=== PATIENT | male | born 1950 | race Caucasian/White ===

== ENCOUNTER 2025-01-22 20:36 | Inpatient (IN) | payer OTHER ==
[~2025-01-22] VITALS: Ht 177.8 cm; Wt 75.2 kg
[2025-01-22 20:57] LABS: Hematocrit 27.6 % (37.0-53.0); Hemoglobin 10.1 g/dL (13.5-17.5); Mean Corpuscular HGB Conc 36.6 g/dL (31.5-36.5); Mean Corpuscular Volume 99 fL (80-100); NRBC ABSOLUTE 0.00 K/mm3 (0.00-0.02); NRBC Auto 0.0 /100 WBC (0.0-0.2); Platelet Count 56 K/mm3 (150-400); RDW Coefficient Variation 13.0 % (11.7-14.2); RDW Standard Deviation 46.9 fL (35.1-46.3)
[2025-01-22] MEDS ORDERED: OXYC5 PO (20:59)
[2025-01-22] MEDS ORDERED: BRUKINSA80 MG PO (20:59)
[2025-01-22 21:19] LABS: Alanine Aminotransfer (ALT/SGP 49.0 U/L (12-78); Albumin, Blood 1.8 g/dL (3.4-5.0); Albumin/Globulin Ratio 0.3 (0.8-1.8); Anion Gap 10.0 mmol/L (3-11); Aspartate Aminotrans (AST/SGOT 54.0 U/L (12-37); Bilirubin, Total 2.4 mg/dL (0.1-1.0); Blood Urea Nitrogen 69.0 mg/dL (8-24); CO2, Blood 23.0 mmol/L (21-32); Calcium, Blood 8.1 mg/dL (8.5-10.1); Chloride, Blood 102.0 mmol/L (98-108); Creatinine, Blood 1.26 mg/dL (0.60-1.20); Globulin, Blood 5.2 g/dL (2.2-4.0); Glucose, Blood 119.0 mg/dL (70-99); Potassium, Blood 2.9 mmol/L (3.5-5.5); Sodium, Blood 132.0 mmol/L (136-145); Total Protein, Blood 7.0 g/dL (6.4-8.2)
[2025-01-22 21:22] LABS: BAND PERCENT MAN 4 % (0-8); BASOPHILS ABSOLUTE MAN 0.00 K/mm3 (0.00-0.23); BASOPHILS PERCENT MAN 0 % (0-2); EOSINOPHILS ABSOLUTE MAN 0.00 K/mm3 (0.00-0.68); EOSINOPHILS PERCENT MAN 0 % (0-6); LYMPHOCYTES % ATYPICAL MANUAL 1 % (0-0); LYMPHOCYTES ABSOLUTE MAN 0.33 K/mm3 (0.84-5.20); LYMPHOCYTES PERCENT MAN 13 % (21-46); MONOCYTES ABSOLUTE MAN 0.09 K/mm3 (0.16-1.47); MONOCYTES PERCENT MAN 4 % (4-13); NEUTROPHILS ABSOLUTE MAN 1.98 K/mm3 (1.96-9.15); SEG NEUTROPHILS PERCENT MAN 78 % (41-73)
[2025-01-22] MEDS ORDERED: NS 1,000 ML IV SCH ×2 (21:25→22:10)
[2025-01-22 21:30] LABS: Source, Urine Foley catheter
[2025-01-22] MEDS ORDERED: Potassium Chl 20MEQ/Water100ML 200 ML IV ONE (21:40)
[2025-01-22] MEDS ORDERED: Potassium Chl 20MEQ/Water100ML 200 ML IV SCH (21:40)
[2025-01-22 21:42] LABS: Bilirubin, Urine Neg (Neg); Color, Urine Amber (P-Yellow); Glucose Qualitative, Urine Neg (Neg); Ketones, Urine Neg (Neg); Leukocyte Esterase, Urine 1+ (Neg); Protein, Urine 2+ (Neg); Specific Gravity, Urine 1.015 (1.003-1.022); Urobilinogen, Urine 1+ (Normal)
[2025-01-22] MEDS ORDERED: Potassium Chl 20MEQ/Water100ML 100 ML IV SCH (21:45)
[2025-01-22] MEDS ORDERED: Ketorolac Tromethamine 30mg Vial IV ONE (21:55)
[2025-01-22] MEDS ORDERED: Piperacillin/Tazobactam Sod 3.375 GM in NS 100 ML IV ONE (21:55)
[2025-01-22 21:56] LABS: Red Blood Cells, Urine 0-2 /hpf (0-2); White Blood Cells, Urine 0-2 /hpf (0-5)
[2025-01-23] VITALS (60 sets, daily range): BP systolic 69–108; BP diastolic 44–80
[2025-01-23] MEDS ORDERED: NS 1,000 ML IV SCH (01:23)
[2025-01-23] MEDS ORDERED: Piperacillin/Tazobactam Sod 3.375 GM in NS 100 ML IV SCH (04:00)
[2025-01-23 04:08] LABS: Hematocrit 28.1 % (37.0-53.0); Hemoglobin 10.0 g/dL (13.5-17.5); Mean Corpuscular HGB Conc 35.6 g/dL (31.5-36.5); Mean Corpuscular Volume 100 fL (80-100); NRBC ABSOLUTE 0.00 K/mm3 (0.00-0.02); NRBC Auto 0.0 /100 WBC (0.0-0.2); Platelet Count 66 K/mm3 (150-400); RDW Coefficient Variation 13.3 % (11.7-14.2); RDW Standard Deviation 49.3 fL (35.1-46.3)
[2025-01-23 04:25] LABS: Alanine Aminotransfer (ALT/SGP 41.0 U/L (12-78); Albumin, Blood 1.6 g/dL (3.4-5.0); Albumin/Globulin Ratio 0.3 (0.8-1.8); Anion Gap 13.0 mmol/L (3-11); Aspartate Aminotrans (AST/SGOT 43.0 U/L (12-37); Bilirubin, Total 2.4 mg/dL (0.1-1.0); Blood Urea Nitrogen 65.0 mg/dL (8-24); CO2, Blood 20.0 mmol/L (21-32); Calcium, Blood 7.4 mg/dL (8.5-10.1); Chloride, Blood 105.0 mmol/L (98-108); Creatinine, Blood 1.32 mg/dL (0.60-1.20); Globulin, Blood 5.0 g/dL (2.2-4.0); Glucose, Blood 83.0 mg/dL (70-99); Magnesium, Blood 1.5 mg/dL (1.6-2.4); Potassium, Blood 3.0 mmol/L (3.5-5.5); Sodium, Blood 135.0 mmol/L (136-145); Total Protein, Blood 6.6 g/dL (6.4-8.2)
[2025-01-23 04:35] LABS: BAND PERCENT MAN 25 % (0-8); BASOPHILS ABSOLUTE MAN 0.00 K/mm3 (0.00-0.23); BASOPHILS PERCENT MAN 0 % (0-2); EOSINOPHILS ABSOLUTE MAN 0.00 K/mm3 (0.00-0.68); EOSINOPHILS PERCENT MAN 0 % (0-6); LYMPHOCYTES ABSOLUTE MAN 0.48 K/mm3 (0.84-5.20); LYMPHOCYTES PERCENT MAN 10 % (21-46); MONOCYTES ABSOLUTE MAN 0.14 K/mm3 (0.16-1.47); MONOCYTES PERCENT MAN 3 % (4-13); MYELOCYTE ABSOLUTE MAN 0.09 K/mm3 (0.00-0.00); MYELOCYTE PERCENT MAN 2 % (0-0); NEUTROPHILS ABSOLUTE MAN 4.12 K/mm3 (1.96-9.15); SEG NEUTROPHILS PERCENT MAN 60 % (41-73)
[2025-01-23] MEDS ORDERED: Mag Sulfate 1 GM/D5% 100ML 100 ML IV ONE (05:15)
--- NOTE | 2025-01-23 06:40 | NUR ---
SHIFT SUMMARY PT HAS TOLERATED SHIFT SINCE ADMIT TO ICU WITH NO SIGNIFICANT EVENTS OR CHANGES. PT CONTINUES TO BE ON LEVOPHED FOR BLOOD PRESSURE SUPPORT. PT WAS STARTED ON NASAL CANULA AT 2LPM WHILE SLEEPING DUE TO DECREASED SPO2 AT THE TIME. WHILE AWAKE, PT IS ON RA SATS >97%. PT COMPLAINS OF CHRONIC PAIN FROM ARTHRITIS IN HANDS, MEDICATED PER AUG. PT ABLE TO SWALLOW WITHOUT COMPLICATION. PARRA IN PLACE DRAINING TO GRAVITY. NO BM OVERNIGHT. CALL LIGHT WITHIN REACH. WILL CONTINUE TO MONITOR UNTIL REPORT PASSED TO DAY SHIFT TEAM.
[2025-01-23 08:47] LABS: Ferritin, Serum 1865.0 ng/mL (26-388); Total Iron Binding Capacity 174.0 ug/dL (250-450)
[2025-01-23] MEDS ORDERED: Enoxaparin 40 MG/0.4 ML SYR SC SCH (09:00)
[2025-01-23] MEDS ORDERED: Lactobacil 2-S.Thermo-Bifido 1 1 Cap PO SCH (09:00)
[2025-01-23 11:52] LABS: Prothrombin Time Results 14.6 Sec (9.7-11.5)
[2025-01-24] VITALS (93 sets, daily range): BP systolic 68–125; BP diastolic 40–79
[2025-01-24 06:10] LABS: Hematocrit 29.8 % (37.0-53.0); Hemoglobin 10.6 g/dL (13.5-17.5); Mean Corpuscular HGB Conc 35.6 g/dL (31.5-36.5); Mean Corpuscular Volume 101 fL (80-100); NRBC ABSOLUTE 0.00 K/mm3 (0.00-0.02); NRBC Auto 0.0 /100 WBC (0.0-0.2); Platelet Count 59 K/mm3 (150-400); RDW Coefficient Variation 13.8 % (11.7-14.2); RDW Standard Deviation 50.8 fL (35.1-46.3)
[2025-01-24 06:34] LABS: Magnesium, Blood 1.7 mg/dL (1.6-2.4)
[2025-01-24 06:35] LABS: Alanine Aminotransfer (ALT/SGP 32.0 U/L (12-78); Albumin, Blood 1.4 g/dL (3.4-5.0); Albumin/Globulin Ratio 0.3 (0.8-1.8); Anion Gap 12.0 mmol/L (3-11); Aspartate Aminotrans (AST/SGOT 26.0 U/L (12-37); Bilirubin, Total 1.6 mg/dL (0.1-1.0); Blood Urea Nitrogen 73.0 mg/dL (8-24); CO2, Blood 20.0 mmol/L (21-32); Calcium, Blood 7.4 mg/dL (8.5-10.1); Chloride, Blood 107.0 mmol/L (98-108); Creatinine, Blood 1.61 mg/dL (0.60-1.20); Globulin, Blood 5.2 g/dL (2.2-4.0); Glucose, Blood 103.0 mg/dL (70-99); Potassium, Blood 3.7 mmol/L (3.5-5.5); Sodium, Blood 135.0 mmol/L (136-145); Total Protein, Blood 6.6 g/dL (6.4-8.2)
[2025-01-24 06:39] LABS: BAND PERCENT MAN 5 % (0-8); BASOPHILS ABSOLUTE MAN 0.00 K/mm3 (0.00-0.23); BASOPHILS PERCENT MAN 0 % (0-2); EOSINOPHILS ABSOLUTE MAN 0.00 K/mm3 (0.00-0.68); EOSINOPHILS PERCENT MAN 0 % (0-6); LYMPHOCYTES ABSOLUTE MAN 0.45 K/mm3 (0.84-5.20); LYMPHOCYTES PERCENT MAN 6 % (21-46); METAMYELOCYTE ABSOLUTE MAN 0.07 K/mm3 (0.00-0.00); METAMYELOCYTE PERCENT MAN 1 % (0-0); MONOCYTES ABSOLUTE MAN 0.15 K/mm3 (0.16-1.47); MONOCYTES PERCENT MAN 2 % (4-13); NEUTROPHILS ABSOLUTE MAN 6.85 K/mm3 (1.96-9.15); SEG NEUTROPHILS PERCENT MAN 86 % (41-73)
[2025-01-24] MEDS ORDERED: NS 1,000 ML IV SCH (15:00)
[2025-01-24 18:30] LABS: Anion Gap 11.0 mmol/L (3-11); Blood Urea Nitrogen 78.0 mg/dL (8-24); CO2, Blood 20.0 mmol/L (21-32); Calcium, Blood 7.9 mg/dL (8.5-10.1); Chloride, Blood 106.0 mmol/L (98-108); Creatinine, Blood 1.75 mg/dL (0.60-1.20); Glucose, Blood 99.0 mg/dL (70-99); Potassium, Blood 3.8 mmol/L (3.5-5.5); Sodium, Blood 133.0 mmol/L (136-145)
--- NOTE | 2025-01-24 18:47 | NUR ---
Palliative care consult: Reviewed medical record prior to visit. Met with pt and Angelica in the room. pt is awake and able to discuss his care needs. Agreeable to GOC conversation. Pt and spouse stated pt did not want to come to the hospital. He does however want to continue treatment for his cancer. Discussed options of hospice once discharged if pt truly does not want to come back to the hospital. Educated on hospice benefit and informed of needing to make decision to stop going to cancer treatment. Pt/spouse V/U. Pt stated his 2 Yorkie dogs are very important to him. He just wants to stay home but will defer any decisions to his . Gave Angelica booklet 'Considering Comfort Care for Loved Ones' and directed her to read about hospice benefits. Also discussed options of comfort care and she could bring pet dogs to hospital to visit pt. Spouse stated she would consider and read the pamphlet.
--- NOTE | 2025-01-24 19:49 | NUR ---
SHIFT SUMMARY: PT IS ALERT AND ORIENTED X 4, ABLE TO COMMUNICATE NEEDS. PT C/O GENERALIZED PAIN, PRN ACETAMINOPHEN GIVEN RECTALLY WITH GOOD EFFECT. PT REMAINS ON RA WITH SPO2 ABOVE 95% PT IN SR - ST WITH HR IN THE 90-110'S, BP STABLE WITH LEVOPHED INFUSING AT 4MCG/MIN FOR MAP GOAL GREATER THAN 65. PT MADE NPO THIS SHIFT, DUE TO S/S OF ASPIRATION AFTER EATING (COUGHING, WET VOICE) , SPEECH CONSULT PLACED.PARRA PATENT, DRAINING TO GRAVITY, 200ML OF SOL URINE NOTED. NO BM, ACTIVE BOWEL TONES IN ALL QUADRANTS. PLAN OF CARE ONGOING, BED AT LOWEST LEVEL, CALL LIGHT WITHIN REACH.
[2025-01-25] VITALS (93 sets, daily range): BP systolic 59–145; BP diastolic 16–115
[2025-01-25 05:45] LABS: Hematocrit 31.7 % (37.0-53.0); Hemoglobin 11.3 g/dL (13.5-17.5); Mean Corpuscular HGB Conc 35.6 g/dL (31.5-36.5); Mean Corpuscular Volume 99 fL (80-100); NRBC ABSOLUTE 0.00 K/mm3 (0.00-0.02); NRBC Auto 0.0 /100 WBC (0.0-0.2); RDW Coefficient Variation 13.7 % (11.7-14.2); RDW Standard Deviation 49.9 fL (35.1-46.3)
[2025-01-25 05:47] LABS: Platelet Count 50 K/mm3 (150-400)
[2025-01-25 06:23] LABS: Alanine Aminotransfer (ALT/SGP 32.0 U/L (12-78); Albumin, Blood 1.3 g/dL (3.4-5.0); Albumin/Globulin Ratio 0.3 (0.8-1.8); Anion Gap 14.0 mmol/L (3-11); Aspartate Aminotrans (AST/SGOT 39.0 U/L (12-37); Bilirubin, Total 1.4 mg/dL (0.1-1.0); Blood Urea Nitrogen 78.0 mg/dL (8-24); CO2, Blood 17.0 mmol/L (21-32); Calcium, Blood 7.2 mg/dL (8.5-10.1); Chloride, Blood 109.0 mmol/L (98-108); Creatinine, Blood 1.67 mg/dL (0.60-1.20); Globulin, Blood 5.1 g/dL (2.2-4.0); Glucose, Blood 90.0 mg/dL (70-99); Potassium, Blood 3.9 mmol/L (3.5-5.5); Sodium, Blood 136.0 mmol/L (136-145); Total Protein, Blood 6.4 g/dL (6.4-8.2)
[2025-01-25 06:38] LABS: BAND PERCENT MAN 13 % (0-8); BASOPHILS ABSOLUTE MAN 0.00 K/mm3 (0.00-0.23); BASOPHILS PERCENT MAN 0 % (0-2); EOSINOPHILS ABSOLUTE MAN 0.00 K/mm3 (0.00-0.68); EOSINOPHILS PERCENT MAN 0 % (0-6); LYMPHOCYTES ABSOLUTE MAN 0.45 K/mm3 (0.84-5.20); LYMPHOCYTES PERCENT MAN 9 % (21-46); METAMYELOCYTE ABSOLUTE MAN 0.05 K/mm3 (0.00-0.00); METAMYELOCYTE PERCENT MAN 1 % (0-0); MONOCYTES ABSOLUTE MAN 0.00 K/mm3 (0.16-1.47); MONOCYTES PERCENT MAN 0 % (4-13); NEUTROPHILS ABSOLUTE MAN 4.58 K/mm3 (1.96-9.15); SEG NEUTROPHILS PERCENT MAN 77 % (41-73)
[2025-01-25] MEDS ORDERED: FentaNYL Citrate 50 MCG/ML 2 ML Injection IV PRN (08:30)
--- NOTE | 2025-01-25 09:23 | NUR ---
AM NOTE... ASSUMED CARE OF PT AT 0700, PT IS A&Ox3 SLOW TO RESPOND WITH MUMBLED SPEECH AT TIMES. PT IS IN SINUS TACH, LEVOPHED STARTED AT 2MCG/MIN TO KEEP MAPS>65 AND IS CURRENTLY AT 4MCG/MIN TO KEEP MAPS>65 AFTER A 500MLS BOLUS OF LR. PT HAS 3+ EDEMA TO HIS BUE AND 4+ TO HIS BLE, DEPENDENT EDEMA NOTED TO HIS PENIS. PT DENEIS ANY CHEST PAIN OR SOB. HE IS ON RA WITH O2 SATS>90% L/S ARE DIM T/O COARSE IN THE BASES. BT ARE PRESENT AND HYPOACTIVE. PT IS NPO D/T ASPIRATION CONCERNS, THE PT AND HIS BOTH EDUCATED ON THIS TOPIC BUT BOTH WERE VERY UPSET, ORAL CARE WAS PROVIDED. PT REFUSED TO LET THIS RN CLEAN HIS ZURITA. PT HAS REFUSED SCDs AND MARI HOSE. TEMP PARRA IS PATENT AND DRAINING TO GRAVITY.
--- NOTE | 2025-01-25 10:27 | NUR ---
Spiritual Care Visit. Pt. is awake in bed when he welcomes my visit. Pt. is pleasant but displayes evidence of being tired with a weak voice. Facilitated a life review. Pt. 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 Listen with emapthy and a calming presence. While the Pt. verbalized that he hasn't practiced his mandaen glenna, he did say that his MIL attened [employer] here in [place]. Pt. displayed evidence of trust. Prayed with the Pt. Pt. verbalized gratitude for the spiritual care visit and welcomed this molder bench to return.
[2025-01-25] MEDS ORDERED: CefTRIAXone Sodium 2,000 MG in NS 100 ML IV SCH (13:00)
[2025-01-25] MEDS ORDERED: Vasopressin 20 UNITS in NS 100 ML IV SCH (14:35)
[2025-01-25 14:49] LABS: Anion Gap 12.0 mmol/L (3-11); Blood Urea Nitrogen 79.0 mg/dL (8-24); CO2, Blood 18.0 mmol/L (21-32); Calcium, Blood 7.7 mg/dL (8.5-10.1); Chloride, Blood 108.0 mmol/L (98-108); Creatinine, Blood 1.73 mg/dL (0.60-1.20); Glucose, Blood 99.0 mg/dL (70-99); Potassium, Blood 3.9 mmol/L (3.5-5.5); Sodium, Blood 134.0 mmol/L (136-145)
--- NOTE | 2025-01-25 15:52 | NUR ---
PT UPDATE.... PT'S LEVOPHED DRIP HAS BEEN TITRATED UP T/O THIS SHIFT FROM 2MCG/MIN TO CURRENTLY RUNNING AT 18MCG/MIN, AT 1445 VASOPRESSIN DRIP WAS ORDERED AND BP HAS BEEN STABLE WITH NO INCREASES ON THE LEVOPHED SINCE. IT IS ALSO NOTED THE PT HAS GONE FROM A&Ox3-4 TO A&O TO SELF ONLY AT THIS TIME.
--- NOTE | 2025-01-25 18:33 | NUR ---
SHIFT SUMMARY.... PT CONTINUES TO BE ON THE LEVOPHED DRIP RUNNING AT 16MCG/MIN AND VASO AT 0.04U/HR TO KEEP MAPS>65. PT CONTINUES TO BE CONFUSED A&O TO SELF ONLY, PT STATES HE KNOWS HE IS CONFUSED BUT IS NO REDIRECTABLE. PT'S PARRA IS PATENT AND DRAINING DARK YELLOW URINE TO GRAVITY. PT HAS NOT HAD A BM THIS SHIFT. A MEPILEX WAS PLACED ON THE PT'S COCCYX AND TURNED Q2 HRS BUT ONCE TURNED THE PT WILL SHIFT HIMSELF BACK TO SUPINE. PT WAS GIVEN A BEDBATH/CHG BATH BUT REFUSED TO ALLOW STAFF TO CLEAN HIS FEET/TOES OR HIS ZURITA. HIS TOES HAVE THICK, FOUL SMELLING CRUST BETWEEN MOST OF THE TOES, HIS ZURITA HAS DRIED FOOD/DRINK IN THE STRANDS BUT STILL REFUSES TO ALLOW STAFF TO CLEAN THEM. THE PICC LINE WAS PULLED OUT 3CM PER RADIOLOGIST REQUEST FROM THE LAST CXR. PT WAS SEEN BY SPEECH THIS AM, HE IS PUREE WITH NECTAR THICK FLUIDS AND MEDS CRUSHED IN APPLE SAUCE.
[2025-01-26] VITALS (98 sets, daily range): BP systolic 76–115; BP diastolic 42–94
--- NOTE | 2025-01-26 04:30 | NUR ---
PT WAS A0 X3 AND FRIENDLY, EVEN JOKING AROUND, AT THE START OF SHIFT. THROUGHOUT SHIFT HE WAS FRSTRATED WITH NOT BEING ABLE TO GET OUT OF BED AND "GO DOWNSTAIRS TO WATCH TV". REORIENTED FREQUENTLY BY MYSELF AND THE UNIT STAFF. HAS BEEN HAVING NIGHTMARES AND WAKES UP EVEN MORE DISORIENTED. DOES NOT REMEMBER WHERE HE IS BUT KNOWS WHERE HE WANTS TO BE, WHICH IS "UPSTAIRS". AFTER TAKING HIM OFF THE BEDPAN, I LEFT TO CHECK ON MY OTHER PATIENT AND HEARD HIM CALLING OUT FOR HELP. WALKED IN AND ASKED WHAT I COULD DO FOR HIM AND HE SAID "WELL, I JUST WANT TO GET INTO BED", TOLD HIM HE WAS ALREADY IN BED AND WAS FREE TO SLEEP, HE SAID "OH! OKAY THEN". HE WAS COOPERATIVE WITH CARE BUT FRUSTRATES EASILY AND CAN BE VERBALLY AGGRESSIVE. IS MANAGING TO GET SOME GOOD SLEEP WITH THE TV ON AND LIGHTS DIMMED.
[2025-01-26 04:32] LABS: Hematocrit 27.4 % (37.0-53.0); Hemoglobin 9.8 g/dL (13.5-17.5); Mean Corpuscular HGB Conc 35.8 g/dL (31.5-36.5); Mean Corpuscular Volume 102 fL (80-100); NRBC ABSOLUTE 0.00 K/mm3 (0.00-0.02); NRBC Auto 0.0 /100 WBC (0.0-0.2); Platelet Count 53 K/mm3 (150-400); RDW Coefficient Variation 13.9 % (11.7-14.2); RDW Standard Deviation 51.8 fL (35.1-46.3)
[2025-01-26 05:16] LABS: Magnesium, Blood 1.5 mg/dL (1.6-2.4)
[2025-01-26 05:25] LABS: Alanine Aminotransfer (ALT/SGP 26.0 U/L (12-78); Albumin, Blood 1.4 g/dL (3.4-5.0); Albumin/Globulin Ratio 0.3 (0.8-1.8); Anion Gap 15.0 mmol/L (3-11); Aspartate Aminotrans (AST/SGOT 28.0 U/L (12-37); Bilirubin, Total 1.3 mg/dL (0.1-1.0); Blood Urea Nitrogen 76.0 mg/dL (8-24); CO2, Blood 15.0 mmol/L (21-32); Calcium, Blood 7.5 mg/dL (8.5-10.1); Chloride, Blood 111.0 mmol/L (98-108); Creatinine, Blood 1.58 mg/dL (0.60-1.20); Globulin, Blood 5.1 g/dL (2.2-4.0); Glucose, Blood 107.0 mg/dL (70-99); Potassium, Blood 3.9 mmol/L (3.5-5.5); Sodium, Blood 137.0 mmol/L (136-145); Total Protein, Blood 6.5 g/dL (6.4-8.2)
[2025-01-26 05:31] LABS: BAND PERCENT MAN 15 % (0-8); BASOPHILS ABSOLUTE MAN 0.00 K/mm3 (0.00-0.23); BASOPHILS PERCENT MAN 0 % (0-2); EOSINOPHILS ABSOLUTE MAN 0.07 K/mm3 (0.00-0.68); EOSINOPHILS PERCENT MAN 1 % (0-6); LYMPHOCYTES ABSOLUTE MAN 0.15 K/mm3 (0.84-5.20); LYMPHOCYTES PERCENT MAN 2 % (21-46); MONOCYTES ABSOLUTE MAN 0.07 K/mm3 (0.16-1.47); MONOCYTES PERCENT MAN 1 % (4-13); NEUTROPHILS ABSOLUTE MAN 7.67 K/mm3 (1.96-9.15); SEG NEUTROPHILS PERCENT MAN 81 % (41-73)
[2025-01-26] MEDS ORDERED: Magnesium Sulf 2 GM/Water 50ML 50 ML IV ONE (06:15)
[2025-01-26] MEDS ORDERED: CefTRIAXone Sodium 2,000 MG in NS 100 ML IV SCH (09:00)
[2025-01-26] MEDS ORDERED: Albumin (Human) 25gm/100ml 100 ML IV ONE (09:30)
--- NOTE | 2025-01-26 11:07 | NUR ---
ASSUMED CARE OF PT AT 0700, PT IS ALERT AND ORIENTED X 3, CONFUSED ON SITUATION AT TIMES. PT REMAINS ON RA WITH SpO2 above 94%, COARSE LUNG SOUNDS TO BILATERAL LOWER LOBES. PT HAS A WEAK COUGH, BARIUM SWALLOW EVAL OBTAINED, PT IS STRICTLY NPO AT THIS TIME. PT IN SR WITH HR IN THE 90'S. LEVOPHED TITRATED DOWN TO 8MCG/MIN, VASOPRESSIN ON SBA AT THIS TIME. FAMILY AT BEDSIDE. PT STATES " I WANT TO GO HOME AND BE WITH MY DOGS IF THERE IS NO HOPE FOR ME" PALLITIVE CARE CALLED. CALLED TO BEDSIDE FOR FAMILY UPDATE.
--- NOTE | 2025-01-26 11:34 | NUR ---
Spiritual Care Support. Pt. is awake and spouse is present when I come to bediside. Pt. displays evidence of being discouraged. After introductions with the spouse, matters of the Pts. health are considered. Spouse verbalizes concern that the Pt. cannot swallow well, aand has been put on NPO. Listen with emapthy and acalming presence. See the Pt. in a depressed state, prayer is offered and accepted. Will remain available to the Pt. and spouse.
--- NOTE | 2025-01-26 17:05 | NUR ---
MET WITH PATIENT AND SPOUSE. JASPAL AND DR. FINLEY WERE PRESENT FOR THIS DISCUSSION. DR. FINLEY DISCUSSED PATIENTS PROGNOSIS. ENCOURAGED THEM TO TAKE ONCOLOGYS RECOMENDATIONS INTO CONSIDERATION. DISCUSSED THAT PATIENT HAS A CHOICE OF CONTINUING CURATIVE TREATMENT OR SWITCHING TO COMFORT MEASURES AND FOCUSING ON SYMPTOM MANAGMENT. WE DISCUSSED THE IMPORTANCE OF FOLLOWING RECOMENDATIONS IF PATIENT WANTS TO CONTINUE CURATIVE MEASURES SUCH FOLLOWING NPO ORDER. PATIENT AND WOULD LIKE TO CONTINUE TREATMENT AT THIS TIME
--- NOTE | 2025-01-26 17:52 | NUR ---
SHIFT SUMMARY: PT REMAINS ALERT AND ORIENTED TO SELF, PLACE, FAMILY, DISORIENTED TO TIME/SITUATION AT TIMES. PT ABLE TO FOLLOW COMMANDS. PT DENIED PAIN T/O SHIFT. PT ON RA SpO2 ABOVE 92% NO RESP DISTRESS NOTED. WHILE SLEEPING PT WAS PLACED ON 2L OF OXYGEN TO MAINTAIN SpO2 ABOVE 90% ORAL CARE PROVIDED Q4HRS, DENTURES IN EFFERDENT SOLUTION AT BEDSIDE. PT HAS BEEN IN SR WITH HR IN THE 80-90'S, BP STABLE WITH LEVOPHED INFUSING AT 6MCG/MIN. VASOPRESSIN REMAINS OFF SINCE 835, SEE CRITICAL CARE FLOWSHEET. PT HAD ONE SMALL BROWN SOFT BM THIS SHIFT. TEMP PARRA PATENT DRAINING TO GRAVITY, 775 ML OF SOL COLOR URINE NOTED. PT REPOSITIONED Q2HRS. PT VERY EDEMATOUS T/O, WEEPING IN ALL EXTREMITIES. PICC LINE DRESSING CHANGEDED. PLAN OF CARE ONGOING, CALL LIGHT WITHIN REACH, BED AT LOWEST LEVEL.
--- NOTE | 2025-01-26 20:27 | NUR ---
ASSUMED CARE AT 1900 PATIENT REPSONDS TO VERBAL STIMULI, ORIENTED X4. FOLLOWS COMMANDS. DENIES PAIN. MOVES ALL EXTREMETIES BUT VERY WEAK. SP02 100% ON RA, DENIES SOB AT THIS TIME. HR SR 90s, BP HYPOTENSIVE, LEVOPHED BEING TITRATED TO MAINTAIN MAP OF 65. PATIENT WITH DEEP WEEPING EDEMATOUS T/O. PARRA PATENT AND DRAINING TO GRAVITY. PATIENT REPOSITONED. CALL LIGHT IN REACH
[2025-01-26 21:21] LABS: Anion Gap 14.0 mmol/L (3-11); Blood Urea Nitrogen 73.0 mg/dL (8-24); CO2, Blood 18.0 mmol/L (21-32); Calcium, Blood 7.9 mg/dL (8.5-10.1); Chloride, Blood 112.0 mmol/L (98-108); Creatinine, Blood 1.42 mg/dL (0.60-1.20); Glucose, Blood 104.0 mg/dL (70-99); Potassium, Blood 3.7 mmol/L (3.5-5.5); Sodium, Blood 140.0 mmol/L (136-145)
[2025-01-27] VITALS (67 sets, daily range): BP systolic 86–128; BP diastolic 50–87
--- NOTE | 2025-01-27 05:33 | NUR ---
SHIFT SUMMARY PATIENT REMAINS ALERT AND ORIENTED X4. SP02 99% ON RA. HR SR-ST 80s-110, A RUN OF VTACH LAST NIGHT, SAVED TELE STRIP TO CHART. TITRATING LEVOPHED DOWN, NOW INFUSING AT 3 MCG/MIN TO MAINTAIN MAP >65. PARRA PATENT AND DRAINING TO GRAVITY. WEEPING EDEMA T/O. BED BATH DONE THIS MORNING. ATTEMPTED TO BRUSH PATIENTS HAIR BUT HE REFUSED. REPOSITIONED Q2 HOURS. CALL LIGHT IN REACH
[2025-01-27 13:10] LABS: Hematocrit 28.7 % (37.0-53.0); Hemoglobin 10.7 g/dL (13.5-17.5); Mean Corpuscular HGB Conc 37.3 g/dL (31.5-36.5); Mean Corpuscular Volume 99 fL (80-100); NRBC ABSOLUTE 0.02 K/mm3 (0.00-0.02); NRBC Auto 0.3 /100 WBC (0.0-0.2); Platelet Count 60 K/mm3 (150-400); RDW Coefficient Variation 13.8 % (11.7-14.2); RDW Standard Deviation 49.2 fL (35.1-46.3)
[2025-01-27 13:32] LABS: Alanine Aminotransfer (ALT/SGP 21.0 U/L (12-78); Albumin, Blood 1.7 g/dL (3.4-5.0); Albumin/Globulin Ratio 0.3 (0.8-1.8); Anion Gap 15.0 mmol/L (3-11); Aspartate Aminotrans (AST/SGOT 25.0 U/L (12-37); Bilirubin, Total 1.2 mg/dL (0.1-1.0); Blood Urea Nitrogen 64.0 mg/dL (8-24); CO2, Blood 17.0 mmol/L (21-32); Calcium, Blood 8.2 mg/dL (8.5-10.1); Chloride, Blood 113.0 mmol/L (98-108); Creatinine, Blood 1.27 mg/dL (0.60-1.20); Globulin, Blood 5.6 g/dL (2.2-4.0); Glucose, Blood 85.0 mg/dL (70-99); Potassium, Blood 3.7 mmol/L (3.5-5.5); Sodium, Blood 141.0 mmol/L (136-145); Total Protein, Blood 7.3 g/dL (6.4-8.2)
--- NOTE | 2025-01-27 14:12 | NUR ---
PALLIATIVE CARE CONSULT: MET WITH PT AND ALEXIS TO DISCUSS HOSPICE SERVICES. PT IS AGREEABLE TO HOSPICE SERVICES AND WANTS TO GO HOME SUSSY. ALEXIS SUPPORTS PT DECISION TO GO ON HOSPICE AND STATES SHE WILL TAKE CARE OF HIM. SHE WOULD LIKE A HOSPITAL BED DELIVERED. EDUCATED PT/ ON HOSPICE BENEFIT. DISCUSSED CURRENT GOC AND PT STATES HE WANTS TO MAKE IT HOME. HOSPICE AGENCY CHOICES GIVEN. PT STATES HE HAS NO PREFERENCE AND WILL GO WITH AGENCY WHO CAN ADMIT TO SERVICES TOMORROW. UPDATED PRIMARY RN, RENETTA AND DR. TITUS WITH POC.
[2025-01-27 14:37] LABS: BAND PERCENT MAN 8 % (0-8); BASOPHILS ABSOLUTE MAN 0.00 K/mm3 (0.00-0.23); BASOPHILS PERCENT MAN 0 % (0-2); EOSINOPHILS ABSOLUTE MAN 0.00 K/mm3 (0.00-0.68); EOSINOPHILS PERCENT MAN 0 % (0-6); LYMPHOCYTES ABSOLUTE MAN 0.45 K/mm3 (0.84-5.20); LYMPHOCYTES PERCENT MAN 6 % (21-46); METAMYELOCYTE ABSOLUTE MAN 0.15 K/mm3 (0.00-0.00); METAMYELOCYTE PERCENT MAN 2 % (0-0); MONOCYTES ABSOLUTE MAN 0.15 K/mm3 (0.16-1.47); MONOCYTES PERCENT MAN 2 % (4-13); MYELOCYTE ABSOLUTE MAN 0.07 K/mm3 (0.00-0.00); MYELOCYTE PERCENT MAN 1 % (0-0); NEUTROPHILS ABSOLUTE MAN 6.78 K/mm3 (1.96-9.15); SEG NEUTROPHILS PERCENT MAN 81 % (41-73)
--- NOTE | 2025-01-27 16:53 | NUR ---
SHIFT SUMMARY PT SLEEPING OFF AND ON THROUGHOUT THE SHIFT. PT ABLE TO ANSWER QUESTIONS APPROPRIATELY AND MAKE NEEDS KNOWN WHEN AWAKE. PT IS SLOW TO RESPOND AND SPEECH IS MUMBLED. PT TITRATED OFF LEVOPHED THIS SHIFT, WITH BP REMAINING STABLE. VITAL SIGNS STABLE, PT ON ROOM AIR. PICC TO LUKE C/D/I. NS INFUSING TKO. PARRA TEMP PROBE REMAINS IN PLACE WITH DARK YELLOW OUTPUT NOTED. PT WITH SEVERE EDEMA, UNCHANGED THROUGHOUT THE SHIFT. PT ABLE TO ASSIST WITH REPOSITIONING, BUT IS WEAK. PT REMAINS NPO AT THIS TIME, WITH PLANS TO TRANSITION TO HOSPICE TOMORROW. WILL CONTINUE TO MONITOR AND REPORT OFF TO ONCOMING RN.
[2025-01-28] VITALS (9 sets, daily range): BP systolic 71–101; BP diastolic 40–80
--- NOTE | 2025-01-28 06:08 | NUR ---
SHIFT SUMMERY PT HAS BEEN CONFUSED AND DIFFICULT TO REDIRECT AT TIMES. HE HAS BEEN ST ON THE ROCK DUSTER. BP W/MAP>65. TEMP PARRA INTACT PATENT AND DRAINING TO GRAVITY. PT STATES THAT HE IS READY TO GO HOME. OXGYEN SAT >90%. HE HAS BEEN MEDICATED FOR PAIN PER EMAR. PT HAS HAD NO ACUTE CHANGES OVERNIGHT AND IS TO BE DISCHARGED HOME TO HOSPICE TODAY.
[2025-01-28] MEDS ORDERED: CIPR750 PO (09:19)
[2025-01-28] MEDS ORDERED: LACT PO (09:19)
--- NOTE | 2025-01-28 10:06 | NUR ---
DISCHARGE ON HOSPICE REVIEWED DISCHARGE INFORMATION WITH PT. PT SIGNED DISCHARGE PAPER. PT TRANSFERED TO [facility]BULANCE [facility]. ALL BELONGINS SENT HOME WITH PT.
== END 2025-01-28 09:55 | disposition hospice, home (50) | DRG 871 ==
LOC: ER 20:36 → ICUE 01-23 01:22
PROVIDERS: Family Medicine; Hospitalist; Student in an Organized Health Care Education/Training Program; ADMIT Student in an Organized Health Care Education/Training Program
PROC: 0T9B70Z Drainage of Bladder with Drainage Device, Via Natural or Artificial Opening (ICD-10-PCS; principal; 2025-01-22)
PROC: 3E03329 Introduction of Other Anti-infective into Peripheral Vein, Percutaneous Approach (ICD-10-PCS; 2025-01-22)
PROC: 3E033XZ Introduction of Vasopressor into Peripheral Vein, Percutaneous Approach (ICD-10-PCS; 2025-01-22)
PROC: 02HV33Z Insertion of Infusion Device into Superior Vena Cava, Percutaneous Approach (ICD-10-PCS; 2025-01-23)
PROC: 02H633Z Insertion of Infusion Device into Right Atrium, Percutaneous Approach (ICD-10-PCS; 2025-01-24)
DX: A41.59 Other Gram-negative sepsis (principal); J18.9 Pneumonia, unspecified organism; R65.21 Severe sepsis with septic shock; I45.2 Bifascicular block; N17.9 Acute kidney failure, unspecified; E87.1 Hypo-osmolality and hyponatremia; E87.21 Acute metabolic acidosis; D61.818 Other pancytopenia; I13.0 Hypertensive heart and chronic kidney disease with heart failure and stage 1 through stage 4 chronic kidney disease, or unspecified chronic kidney disease; Z66 Do not resuscitate; Z51.5 Encounter for palliative care; E83.42 Hypomagnesemia; N18.31 Chronic kidney disease, stage 3a; E83.51 Hypocalcemia; R13.10 Dysphagia, unspecified; R59.0 Localized enlarged lymph nodes; R16.2 Hepatomegaly with splenomegaly, not elsewhere classified; I50.9 Heart failure, unspecified; M19.90 Unspecified osteoarthritis, unspecified site; E86.0 Dehydration; E78.5 Hyperlipidemia, unspecified; E87.6 Hypokalemia; C88.00 Waldenstrom macroglobulinemia not having achieved remission; D63.1 Anemia in chronic kidney disease; Z88.5 Allergy status to narcotic agent; Z88.8 Allergy status to other drugs, medicaments and biological substances; Z98.890 Other specified postprocedural states; Z79.899 Other long term (current) drug therapy
CPT/HCPCS: 36415; 36569; 51702; 71045; 74177; 74230; 80048; 80053; 81001; 82330; 82607; 82728; 82746; 82947; 83540; 83550; 83605; 83735; 83880; 85025; 85610; 87040; 87077; 87086; 87186; 92526; 92610; 92611; 93005; 93010; 93306; 94762; 96365-59; 96366; 96366-59; 96368; 96375-59; 99285-25; A9270; C1751; J0456; J0612; J0696; J1650; J1885; J2185; J2543; J3010; J3475; J3480; J7030; J7050; J7120; P9047; Q9967